=== PATIENT | male | born 1945 ===

== ENCOUNTER 2018-10-06 06:48 | Day surgery (SDC) | payer MEDICARE ==
[~2018-10-06] VITALS: Ht 172.7 cm; Wt 90.0 kg
[2018-10-06] MEDS ORDERED: METF500 PO (07:48)
[2018-10-06] MEDS ORDERED: PIOG45 PO (07:49)
[2018-10-06] MEDS ORDERED: GLIM4 PO (07:49)
[2018-10-06] MEDS ORDERED: AMLO5 PO (07:49)
[2018-10-06] MEDS ORDERED: VITAMIN D3400 UNIT PO (07:50)
[2018-10-06] MEDS ORDERED: FISH OIL 1,001000 MG PO (07:50)
[2018-10-06] MEDS ORDERED: VITAMIN B122500 MCG PO (07:50)
== END 2018-10-06 09:28 | disposition home or self-care (01) ==
LOC: ORSCSDS 06:48
PROVIDERS: Ophthalmology
PROC: 08RK3JZ Replacement of Left Lens with Synthetic Substitute, Percutaneous Approach (ICD-10-PCS; principal; 2018-10-06 08:30)
DX: H25.12 Age-related nuclear cataract, left eye (principal); I10 Essential (primary) hypertension; E11.9 Type 2 diabetes mellitus without complications; Z87.891 Personal history of nicotine dependence; Z79.899 Other long term (current) drug therapy
CPT/HCPCS: 82947; J2250; J3010; J3301; J7120; V2632

== ENCOUNTER 2024-06-14 20:21 | Emergency (ER) | payer MEDICARE ==
[~2024-06-14] VITALS: Ht 172.7 cm; Wt 93.0 kg
[~2024-06-14 20:21] MED LIST: AMLO5 PO; FISH OIL 1,001000 MG PO; GLIM4 PO; METF500 PO; PIOG45 PO; VITAMIN B122500 MCG PO; VITAMIN D3400 UNIT PO
[2024-06-14] MEDS ORDERED: Diphth,Pertuss(Acell),Tet Vac 0.5 ML VIAL IM ONE (23:30)
== END 2024-06-15 00:07 | disposition home or self-care (01) ==
LOC: ER 20:21
DX: S01.81XA Laceration without foreign body of other part of head, initial encounter (principal); W19.XXXA Unspecified fall, initial encounter; I10 Essential (primary) hypertension; E11.9 Type 2 diabetes mellitus without complications; F17.200 Nicotine dependence, unspecified, uncomplicated; Z79.84 Long term (current) use of oral hypoglycemic drugs; Z79.899 Other long term (current) drug therapy; Z23 Encounter for immunization
CPT/HCPCS: 12011; 90471; 90715; 99282-25